=== PATIENT | female | born 1955 | race Caucasian/White ===

== ENCOUNTER 2022-12-20 13:29 | Outpatient (AMB) | payer MEDICARE, OTHER, SELFPAY ==
[2022-12-20 13:33] VITALS: BP 128/74; PULSE 75; BMI 26.1
--- NOTE | 2022-12-20 13:33 | HO.NEPHOV ---
HPI HPI Comments History of Present Illness Details Maria A is a 67-year-old female whom had the privilege of seeing in follow-up for her labile blood pressure. She has history hypertension and in the past was on SARAH-inhibitor, the dose of which had been reduced over time due to dizziness. She has history of obstructive sleep apnea and was on CPAP briefly which she does not use these days. She felt better when her SARAH-inhibitor was reduced & was later was maintained on 2.5 mg lisinopril even though her dizziness never went away at that time. Then her blood pressures started going up and had epistaxis needing emergency room visit. Later she had been started on increased dose of lisinopril. She typically takes a normal diet. She has history of dyslipidemia and was on statins in the past which she had discontinued. Her renal functions always have been normal. She closely monitors her blood pressure at home. She denies any history of hypokalemia. She has history of hypothyroidism and is on levothyroxine. She denies any CVA, CHF, NELLIE, PVD, CAD or carotid stenosis. Her lipid profile had improved with diet. She had a Doppler of renal arteries showed unilateral renal artery stenosis. She had a cough from SARAH inhibitor and it was discontinued. Currently she is maintained on nifedipine. She is tolerating that medication well. [facility] Medical History (Updated 12/24/22 @ 09:15 by Andre Soto MD) Xerostomia Sleep apnea Hyperlipidemia Hypothyroidism History of adenomatous polyp of colon Fatigue Esophageal reflux Carpal tunnel syndrome of right wrist Hypertension Surgical History (Updated 12/20/22 @ 13:43 by Callie Escobar MA) History of carpal tunnel release History of breast surgery History of bladder surgery Family History Mother Heart disease Hypertension Father Hypertension Cancer Sister Hypertension Brother Heart disease Social History Alcohol intake: current Patient Tobacco Use Status: Never used Tobacco Vital Signs 12/20/22 13:33 Height 5 ft 4 in Weight 152 lb 2 oz BMI 26.1 BP 128/74 Blood Pressure Location Lt brachial Position Sitting Pulse 75 Pulse Source Pulse Oximeter Physical Exam Vital Signs: Last Vital Signs Pulse 75 12/20/22 13:33 BP 128/74 12/20/22 13:33 BMI result Body Mass Index 26.1 Const General: comfortable and no acute distress Orientation/consciousness: patient oriented x3 HEENT Head: Yes normocephalic Mouth: Normal oral and palatal mucosa present Eyes EOM: EOMs intact bilaterally Neck Neck: Yes supple Resp Auscultation: clear to auscultation bilaterally Cardio Jugular venous distension: no JVD Rate: regular rate Heart sounds: Murmur heart sound present GI Palpation (GI): Soft to palpation Auscultation: normal bowel sounds General: Yes no CVA tenderness Back/Spine/Pelvis Back: no CVA tenderness Skin General skin exam: no rashes or lesions noted Neuro General: patient oriented x3 and moves all extremities Extrem General: Yes no pedal edema Assessment & Plan Assessment & Plan (1) Hypertension: Code(s): I10 - Essential (primary) hypertension Qualifiers: Hypertension type: primary hypertension Qualified Code(s): I10 - Essential (primary) hypertension Plan Maria A has longstanding hypertension. She has unilateral renal artery stenosis. She had a 24 hour blood pressure monitor in the past. She tries to be on a low-sodium diet if possible. She does not use any excessive nonsteroidal anti-inflammatory medications. She has no history of any end-organ damage. Her volume status is optimal. The blood pressure at home is currently at goal. Her SARAH inhibitor was discontinued in the past due to cough. She was later on losartan which was discontinued as it was thought to be causing some tingling sensations in her feet as well as hands. She may benefit from seeing a neurologist for evaluation of the same. She wants to discuss that with her primary care physician. She can continue her current dose of nifedipine for now. Follow-up blood work was ordered. Answered all questions. No prescription refill requested. Time spent reviewing data, discussions, patient encounter and documentation 33 minutes. Orders: Orders Calcium 12/20/22 I10 - Essential (primary) hypertension Electrolytes 12/20/22 I10 - Essential (primary) hypertension Blood Urea Nitrogen 12/20/22 I10 - Essential (primary) hypertension Creatinine 12/20/22 I10 - Essential (primary) hypertension Protein Creatinine Ratio, Ur 12/20/22 I10 - Essential (primary) hypertension Coding Level of Care Code Est Pt Level 4 (35628) Diagnoses Primary hypertension I10 Hypertension type: primary hypertension
== END 2022-12-20 14:33 | disposition home or self-care (01) ==
PROVIDERS: PCP Nurse Practitioner Primary Care; Visit Provider Internal Medicine Nephrology
DX: I10 Essential (primary) hypertension (principal); I70.1 Atherosclerosis of renal artery
CPT/HCPCS: 99214

== ENCOUNTER → 2022-12-20 13:29 | Outpatient (BNVA) | payer OTHER, MEDICARE, SELFPAY | PROVIDERS: PCP Nurse Practitioner Primary Care; Visit Provider Internal Medicine Nephrology ==

== ENCOUNTER 2023-06-24 09:24 | Outpatient (AMB) | payer MEDICARE, OTHER, SELFPAY ==
--- NOTE | 2023-06-24 09:28 | HO.NEPHOV_ITS ---
Vital Signs 06/24/23 09:42 Height 5 ft 4 in Weight 156 lb 4 oz BMI 26.8 BP 120/70 Blood Pressure Location Lt brachial Position Sitting Pulse 70 Pulse Source Pulse Oximeter Pulse Oximetry (%) 100 Oxygen Delivery Method Room Air Intake Visit Reasons: 6M follow up/ Confirmed Sustainability Communicator Required: No Accompanied by: Self / Same As Patient Allergies doxycycline Allergy (Verified 06/24/23 09:44) Unknown HPI Comments Details: Maria A is a 67-year-old female whom I had the privilege of seeing in follow-up for her labile blood pressure. She has history hypertension and in the past was on SARAH-inhibitor, the dose of which had been reduced over time due to dizziness. She has history of obstructive sleep apnea and was on CPAP briefly which she does not use these days. She felt better when her SARAH-inhibitor was reduced & was later was maintained on 2.5 mg lisinopril even though her dizziness never went away at that time. Then her blood pressures started going up and had epistaxis needing emergency room visit. Later she had been started on increased dose of lisinopril. She typically takes a normal diet. She has history of dyslipidemia and was on statins in the past which she had discontinued. Her renal functions always have been normal. She closely monitors her blood pressure at home. She denies any history of hypokalemia/ hyperkalemia. She has history of hypothyroidism and is on levothyroxine. She denies any CVA, CHF, NELLIE, PVD, CAD or carotid stenosis. Her lipid profile had improved with diet. She had a Doppler of renal arteries showed unilateral renal artery stenosis. She had a cough from SARAH inhibitor and it was discontinued. Currently she is maintained on nifedipine. She is tolerating that medication well but has been having dizziness when her systolic BP is around 110 or in teens. [facility] Medical History (Updated 12/24/22 @ 09:15 by Andre Soto MD) Xerostomia Sleep apnea Hyperlipidemia Hypothyroidism History of adenomatous polyp of colon Fatigue Esophageal reflux Carpal tunnel syndrome of right wrist Hypertension Surgical History (Updated 12/20/22 @ 13:43 by Callie Escobar MA) History of carpal tunnel release History of breast surgery History of bladder surgery Family History Mother Heart disease Hypertension Father Hypertension Cancer Sister Hypertension Brother Heart disease Social History Alcohol intake: current Patient Tobacco Use Status: Never used Tobacco Physical Exam Const General: comfortable and no acute distress Orientation/consciousness: patient oriented x3 HEENT Head: Yes normocephalic Mouth: Normal oral and palatal mucosa present Eyes EOM: EOMs intact bilaterally Neck Neck: Yes supple Resp Auscultation: clear to auscultation bilaterally Cardio Jugular venous distension: no JVD Rate: regular rate GI Palpation (GI): Soft to palpation Auscultation: normal bowel sounds General: Yes no CVA tenderness Back/Spine/Pelvis Back: no CVA tenderness Skin General skin exam: no rashes or lesions noted Neuro General: patient oriented x3 and moves all extremities Extrem General: Yes no pedal edema Results Reviewed Nephrology Results: No Data to Display Assessment & Plan Assessment & Plan (1) Hypertension: Code(s): I10 - Essential (primary) hypertension Category: Medical Qualifiers: Hypertension type: primary hypertension Qualified Code(s): I10 - Essential (primary) hypertension Plan Maria A has longstanding hypertension. She has unilateral renal artery stenosis. She had a 24 hour blood pressure monitor in the past. She tries to be on a low-sodium diet if possible. She does not use any excessive nonsteroidal anti- inflammatory medications. She has no history of any end-organ damage. Her volume status is optimal. The blood pressure at home is currently at goal. Her SARAH inhibitor was discontinued in the past due to cough. She was later on losartan which was discontinued as it was thought to be causing some tingling sensations in her feet as well as hands. She can continue her current dose of nifedipine for now but I have asked her to take it at bed time. Answered all questions. No prescription refill requested. Coding Level of Care Code Est Pt Level 4 (92960) Diagnoses Primary hypertension I10 Hypertension type: primary hypertension
[2023-06-24 09:42] VITALS: BP 120/70; PULSE 70; O2SAT 100; BMI 26.8
== END 2023-06-24 10:18 | disposition home or self-care (01) ==
PROVIDERS: PCP Nurse Practitioner Primary Care; Visit Provider Internal Medicine Nephrology
DX: I10 Essential (primary) hypertension (principal)
CPT/HCPCS: 99214

== ENCOUNTER → 2023-06-24 09:24 | Outpatient (BNVA) | payer OTHER, MEDICARE, SELFPAY | PROVIDERS: PCP Nurse Practitioner Primary Care; Visit Provider Internal Medicine Nephrology ==

== ENCOUNTER 2023-10-14 15:07 | Outpatient (AMB) | payer MEDICARE, OTHER, SELFPAY ==
--- NOTE | 2023-10-14 15:39 | HO.NEPHOV_ITS ---
Vital Signs 10/14/23 15:40 Height 5 ft 4 in Weight 155 lb BMI 26.6 BP 134/78 Blood Pressure Location Lt brachial Position Sitting Pulse 57 Pulse Source Pulse Oximeter Pulse Oximetry (%) 98 Oxygen Delivery Method Room Air Intake Visit Reasons: Sep follow up- Conf Editing Intern Required: No Allergies doxycycline Allergy (Verified 10/14/23 15:43) Unknown HPI Comments Details: Maria A is a 67-year-old female whom I had the privilege of seeing in follow-up for her labile blood pressure. She has history hypertension and in the past was on SARAH-inhibitor, the dose of which had been reduced over time due to dizziness. She has history of obstructive sleep apnea and was on CPAP briefly which she does not use these days. She felt better when her SARAH-inhibitor was reduced & was later was maintained on 2.5 mg lisinopril even though her dizziness never went away at that time. Then her blood pressures started going up and had epistaxis needing emergency room visit. Later she had been started on increased dose of lisinopril. She typically takes a normal diet. She has history of dyslipidemia and was on statins in the past which she had discontinued. Her renal functions always have been normal. She closely monitors her blood pressure at home. She denies any history of hypokalemia/ hyperkalemia. She has history of hypothyroidism and is on levothyroxine. She denies any CVA, CHF, NELLIE, PVD, CAD or carotid stenosis. Her lipid profile had improved with diet. She had a Doppler of renal arteries showed unilateral renal artery stenosis. She had a cough from SARAH inhibitor and it was discontinued. She has been on nifedipine which was discontinued due to relatively low BP's. Her HR has been running around 50's [facility] Medical History (Updated 10/14/23 @ 15:59 by Andre Soto MD) Xerostomia Sleep apnea Hyperlipidemia Hypothyroidism History of adenomatous polyp of colon Fatigue Esophageal reflux Carpal tunnel syndrome of right wrist Hypertension Surgical History History of carpal tunnel release History of breast surgery History of bladder surgery Family History Mother Heart disease Hypertension Father Hypertension Cancer Sister Hypertension Brother Heart disease Social History Alcohol intake: current Patient Tobacco Use Status: Never used Tobacco Physical Exam Vital Signs: Last Vital Signs Pulse 57 10/14/23 15:40 BP 134/78 10/14/23 15:40 Pulse Ox 98 10/14/23 15:40 Oxygen Delivery Method Room Air 10/14/23 15:40 BMI result Body Mass Index 26.6 Results Reviewed Nephrology Results: No Data to Display Assessment & Plan Assessment & Plan (1) Hypertension: Code(s): I10 - Essential (primary) hypertension Category: Medical Qualifiers: Hypertension type: primary hypertension Qualified Code(s): I10 - Essential (primary) hypertension (2) Renal artery stenosis: Code(s): I70.1 - Atherosclerosis of renal artery Category: Medical Plan Maria A had longstanding hypertension. She has unilateral renal artery stenosis. She had a 24 hour blood pressure monitor in the past. She tries to be on a low-sodium diet if possible. She does not use any excessive nonsteroidal anti-inflammatory medications. She has no history of any end-organ damage. Her volume status is optimal. The blood pressure at home is currently at goal off all BP medications. She needs cardiology consultation to R/O conduction issues . Answered all questions. Coding Level of Care Code Est Pt Level 4 (37455) Diagnoses Primary hypertension I10 Hypertension type: primary hypertension Renal artery stenosis I70.1
[2023-10-14 15:40] VITALS: BP 134/78; PULSE 57; O2SAT 98; BMI 26.6
== END 2023-10-14 16:11 | disposition home or self-care (01) ==
PROVIDERS: PCP Nurse Practitioner Primary Care; Visit Provider Internal Medicine Nephrology
DX: I10 Essential (primary) hypertension (principal); I70.1 Atherosclerosis of renal artery
CPT/HCPCS: 99214

== ENCOUNTER → 2023-10-14 15:07 | Outpatient (BNVA) | payer OTHER, MEDICARE, SELFPAY | PROVIDERS: PCP Nurse Practitioner Primary Care; Visit Provider Internal Medicine Nephrology ==

== ENCOUNTER 2024-04-15 13:41 | Outpatient (AMB) | payer OTHER, MEDICARE, SELFPAY ==
--- NOTE | 2024-04-15 13:39 | HO.NEPHOV ---
Vital Signs 04/15/24 14:00 Height 5 ft 3.5 in Weight 159 lb 6 oz BMI 27.8 BP 138/70 Blood Pressure Location Lt brachial Position Sitting Pulse 69 Pulse Source Pulse Oximeter Pulse Oximetry (%) 97 Oxygen Delivery Method Room Air Intake Visit Reasons: 6 mon follow up-Conf Special Needs Librarian Required: No Accompanied by: Self / Same As Patient Allergies doxycycline Allergy (Verified 04/15/24 14:01) Unknown HPI Comments Details: Maria A is a 67-year-old female whom I had the privilege of seeing in follow-up for her labile blood pressure. She has history hypertension and in the past was on SARAH-inhibitor, the dose of which had been reduced over time due to dizziness. She has history of obstructive sleep apnea and was on CPAP briefly which she does not use these days. She felt better when her SARAH-inhibitor was reduced & was later was maintained on 2.5 mg lisinopril even though her dizziness never went away at that time. Then her blood pressures started going up and had epistaxis needing emergency room visit. Later she had been started on increased dose of lisinopril. She typically takes a normal diet. She has history of dyslipidemia and was on statins in the past which she had discontinued. Her renal functions always have been normal. She closely monitors her blood pressure at home. She denies any history of hypokalemia/ hyperkalemia. She has history of hypothyroidism and is on levothyroxine. She denies any CVA, CHF, NELLIE, PVD, CAD or carotid stenosis. Her lipid profile had improved with diet. She had a Doppler of renal arteries showed unilateral renal artery stenosis. She had a cough from SARAH inhibitor and it was discontinued. She has been on nifedipine which was discontinued due to relatively low BP's. Her sodium intake has been on the higher side and her BP has been fluctuant [facility] Medical History (Updated 10/14/23 @ 15:59 by Andre Soto MD) Xerostomia Sleep apnea Hyperlipidemia Hypothyroidism History of adenomatous polyp of colon Fatigue Esophageal reflux Carpal tunnel syndrome of right wrist Hypertension Surgical History History of carpal tunnel release History of breast surgery History of bladder surgery Family History Mother Heart disease Hypertension Father Hypertension Cancer Sister Hypertension Brother Heart disease Social History Alcohol intake: current Patient Tobacco Use Status: Never used Tobacco Review of Systems Const All systems reviewed & are unremarkable except as noted in HPI and below Physical Exam Vital Signs: Last Vital Signs Pulse 69 04/15/24 14:00 BP 138/70 04/15/24 14:00 Pulse Ox 97 04/15/24 14:00 Oxygen Delivery Method Room Air 04/15/24 14:00 BMI result Body Mass Index 27.8 Const General: comfortable and no acute distress Orientation/consciousness: patient oriented x3 HEENT Head: Yes normocephalic Mouth: Normal oral and palatal mucosa present Eyes EOM: EOMs intact bilaterally Neck Neck: Yes supple Resp Auscultation: clear to auscultation bilaterally Cardio Jugular venous distension: no JVD Rate: regular rate GI Palpation (GI): Soft to palpation Auscultation: normal bowel sounds Skin General skin exam: no rashes or lesions noted Neuro General: patient oriented x3 and moves all extremities Extrem General: Yes no pedal edema Results Reviewed Nephrology Results: No Data to Display Assessment & Plan Assessment & Plan (1) Hypertension: Code(s): I10 - Essential (primary) hypertension Category: Medical Qualifiers: Hypertension type: primary hypertension Qualified Code(s): I10 - Essential (primary) hypertension (2) Renal artery stenosis: Code(s): I70.1 - Atherosclerosis of renal artery Category: Medical Plan Maria A had longstanding hypertension. She has unilateral renal artery stenosis. She had a 24 hour blood pressure monitor in the past. She tries to be on a low-sodium diet if possible. She does not use any excessive nonsteroidal anti-inflammatory medications. She has no history of any end-organ damage. Her volume status is optimal. The blood pressure at home is currently at goal off all BP medications. Answered all questions. Coding Level of Care Code Est Pt Level 4 (13854) Diagnoses Primary hypertension I10 Hypertension type: primary hypertension Renal artery stenosis I70.1
[2024-04-15 14:00] VITALS: BP 138/70; PULSE 69; O2SAT 97; BMI 27.8
--- OUTSIDE RECORDS SUMMARY | 2024-04-15 16:39 | XMS_ITS | Encounter Summary ---
Author Organization [facility] Address [address] [place] [address] Phone Care Team Providers Care Natural Resources Specialist Name Role Phone Latha Damon GLASS FRAME FITTER-C Primary Care Provider + Reason for Visit * Reason Comments Med Refill Encounter Details Date Type Department Care Team (Late st Contact Info) Description 11/13/2022 Refill [facility] [address] [place] [address] Andre Soto MD Social History Tobacco Use Types Packs/Day Years Used Date Smoking Tobacco: Never Smokeless Tobacco: Never Alcohol Use Standard Drinks/Week Comments Yes 0 (1 standard drink = 0.6 oz pur e alcohol) Comments Unknown Sex and Gender Information Value Date Recorded Sex Assigned at Not on file Legal Sex Female 4:46 PM EDT Gender Identity Not on file Sexual Orientation Not on file documented as of this encounter Plan of Treatment Not on file documented as of this encounter Visit Diagnoses Not on filedocumented in this encounter Care Teams Natural Resources Specialist Relationship Specialty Start Date End Date Latha Damon NP-C [address], [address] [place], [place] [id number] PCP - General Nurse Practitioner 05/16/22 documented as of this encounter
--- OUTSIDE RECORDS SUMMARY | 2024-04-15 16:39 | XMS_ITS | Clinical Summary ---
Author Organization [facility] Address [address] [place] [address] Phone Care Team Providers Care Boiler House Inspector Name Role Phone Latha Damon WAITSTAFFCollinC Primary Care Provider + Allergies No known active allergies Medications albuterol HFA (PROVENTIL HFA;VENTOLIN HFA) 108 (90 Base) MCG/ACT inhaler Inhale 2 puffs every 6 (six) hours if needed for wheezing Active levothyroxine (SYNTHROID, LEVOTHROID) 75 MCG tablet Take 75 mcg by mouth 1 (one) time each day Active EPINEPHrine (EPIPEN) 0.3 MG/0.3ML injection syringe INJECT 0.3 MILLILITER (0.3 MG) BY INTRAMUSCULAR ROUTE ONCE NEEDED FOR ANAPHYLAXIS 3 Active traZODone (DESYREL) 100 MG tablet Take 100 mg by mouth if needed 3 Active NIFEdipine XL (PROCARDIA XL) 30 MG 24 hr tablet TAKE 1 TABLET (30 MG TOTAL) BY MOUTH 1 (ONE) TIME EACH DAY DO NOT CRUSH, CHEW, OR SPLIT. 30 tablet 1 3 Active Active Problems Problem Noted Date Diagnosed Date Renal artery stenosis 06/27/2022 Rectocele 06/26/2022 Hypertension 05/21/2022 Essential (primary) hypertension 05/20/2022 Immunizations Name Administration Dates Next Due Pfizer SARS-COV-2 05/17/2020,04/26/2020 Family History Medical History Relation Comments Heart disease Brother Cancer Father Bladder Cancer Hypertension Father Heart disease Mother Hypertension Mother Hypertension Sister Relation Status Comments Brother Father Mother Sister Social History Tobacco Use Types Packs/Day Years Used Date Smoking Tobacco: Never Smokeless Tobacco: Never Tobacco Cessation:Counseling Given: Not Answered Alcohol Use Standard Drinks/Week Comments Yes 0 (1 standard drink = 0.6 oz pur e alcohol) Comments Unknown Sex and Gender Information Value Date Recorded Sex Assigned at Not on file Legal Sex Female 4:46 PM EDT Gender Identity Not on file Sexual Orientation Not on file Last Filed Vital Signs Vital Sign Reading Time Taken Comments Blood Pressure 130/70 10/28/2022 4:46 PM EDT Pulse 84 10/28/2022 4:46 PM EDT Temperature - - Respiratory Rate - - Oxygen Saturation - - Inhaled Oxygen Concentration - - Weight 69.9 kg (154 lb 3.2 oz) 10/28/2022 4:46 P M EDT Height - - Body Mass Index - - Plan of Treatment Health Maintenance Due Date Last Done Comments Breast Cancer Screening 1955 Pneumococcal Vaccine: 65+ Ye ars (1 of 2 - PCV) 01/27/1960 Colorectal Cancer Screening: Annual FOBT 2003 Colorectal Cancer Screening: Colonoscopy 2003 Colorectal Cancer Screening: Sigmoidoscopy 2003 Influenza Vaccine (#1) 2023 Hepatitis B Vaccine Aged Out No longe r eligible based on patient's age to complete this topic Insurance * Guarantor: Maria A Pierre Account Type Relation to Patient Date of Phone Billing Address Personal/Family Self 1955 [address] [place] [address] MEDICARE [facility] * Guarantor: Maria A Pierre Account Type Relation to Patient Date of Phone Billing Address Personal/Family Self 1955 [address] [place] [id number] MEDICARE [facility] Care Teams Boiler House Inspector Relationship Specialty Start Date End Date Latha Damon NP-C [address], [address] [place] [address] PCP - General Nurse Practitioner 05/16/22
== END 2024-04-15 14:28 | disposition home or self-care (01) ==
PROVIDERS: PCP Nurse Practitioner Primary Care; Visit Provider Internal Medicine Nephrology
DX: I10 Essential (primary) hypertension (principal); I70.1 Atherosclerosis of renal artery
CPT/HCPCS: 99214

== ENCOUNTER → 2024-04-15 13:41 | Outpatient (BNVA) | payer OTHER, MEDICARE, SELFPAY | PROVIDERS: PCP Nurse Practitioner Primary Care; Visit Provider Internal Medicine Nephrology ==

== ENCOUNTER 2024-10-14 09:34 | Outpatient (AMB) | payer OTHER, MEDICARE, SELFPAY ==
--- NOTE | 2024-10-14 09:38 | HO.NEPHOV ---
Vital Signs 10/14/24 09:56 Height 5 ft 3.5 in Weight 157 lb 6 oz BMI 27.4 BP 130/70 Blood Pressure Location Lt brachial Position Sitting Pulse 74 Pulse Source Pulse Oximeter Pulse Oximetry (%) 98 Oxygen Delivery Method Room Air Intake Visit Reasons: 6 mo follow up-Conf Vehicle Service Attendant Required: No Accompanied by: Self / Same As Patient Allergies doxycycline Allergy (Verified 10/14/24 09:56) Unknown HPI Comments Details: Maria A is a 67-year-old female whom I had the privilege of seeing in follow-up for her labile blood pressure. She has history hypertension and in the past was on SARAH-inhibitor, the dose of which had been reduced over time due to dizziness. She has history of obstructive sleep apnea and was on CPAP briefly which she does not use these days. She felt better when her SARAH-inhibitor was reduced & was later was maintained on 2.5 mg lisinopril even though her dizziness never went away at that time. Then her blood pressures started going up and had epistaxis needing emergency room visit. Later she had been started on increased dose of lisinopril. She typically takes a normal diet. She has history of dyslipidemia and was on statins in the past which she had discontinued. Her renal functions always have been normal. She closely monitors her blood pressure at home. She denies any history of hypokalemia/ hyperkalemia. She has history of hypothyroidism and is on levothyroxine. She denies any CVA, CHF, NELLIE, PVD, CAD or carotid stenosis. Her lipid profile had improved with diet. She had a Doppler of renal arteries showed unilateral renal artery stenosis. She had a cough from SARAH inhibitor and it was discontinued. She has been on nifedipine which was discontinued due to relatively low BP's. She is going to have coronary Calcium score done soon. [facility] Medical History (Updated 10/14/24 @ 10:04 by Andre Soto MD) Xerostomia Sleep apnea Hyperlipidemia Hypothyroidism History of adenomatous polyp of colon Fatigue Esophageal reflux Carpal tunnel syndrome of right wrist Hypertension Surgical History History of carpal tunnel release History of breast surgery History of bladder surgery Family History Mother Heart disease Hypertension Father Hypertension Cancer Sister Hypertension Brother Heart disease Social History Alcohol intake: current Patient Tobacco Use Status: Never used Tobacco Review of Systems Const All systems reviewed & are unremarkable except as noted in HPI and below Physical Exam Vital Signs: Last Vital Signs Pulse 74 10/14/24 09:56 BP 130/70 10/14/24 09:56 Pulse Ox 98 10/14/24 09:56 Oxygen Delivery Method Room Air 10/14/24 09:56 BMI result Body Mass Index 27.4 Const General: comfortable and no acute distress Orientation/consciousness: patient oriented x3 HEENT Head: Yes normocephalic Mouth: Normal oral and palatal mucosa present Eyes EOM: EOMs intact bilaterally Neck Neck: Yes supple Resp Auscultation: clear to auscultation bilaterally Cardio Jugular venous distension: no JVD Rate: regular rate GI Palpation (GI): Soft to palpation Auscultation: normal bowel sounds General: Yes no CVA tenderness Back/Spine/Pelvis Back: no CVA tenderness Skin General skin exam: no rashes or lesions noted Neuro General: patient oriented x3 and moves all extremities Extrem General: Yes no pedal edema Assessment & Plan Assessment & Plan (1) Renal artery stenosis: Code(s): I70.1 - Atherosclerosis of renal artery Category: Medical (2) Labile blood pressure: Code(s): R09.89 - Other specified symptoms and signs involving the circulatory and respiratory systems Category: Medical Plan Maria A had longstanding labile blood pressure . She has unilateral renal artery stenosis. She had a 24 hour blood pressure monitor in the past. She tries to be on a low-sodium diet if possible. She does not use any excessive nonsteroidal anti-inflammatory medications. She has no history of any end-organ damage. Her volume status is optimal. The blood pressure at home is currently at goal off all BP medications. Answered all questions. Orders: Orders Creatinine 8 Months I70.1 - Atherosclerosis of renal artery, R09.89 - Other specified symptoms and signs involving the circulatory and respiratory systems Blood Urea Nitrogen 8 Months I70.1 - Atherosclerosis of renal artery, R09.89 - Other specified symptoms and signs involving the circulatory and respiratory systems Electrolytes 8 Months I70.1 - Atherosclerosis of renal artery, R09.89 - Other specified symptoms and signs involving the circulatory and respiratory systems Protein Creatinine Ratio, Ur 8 Months I70.1 - Atherosclerosis of renal artery, R09.89 - Other specified symptoms and signs involving the circulatory and respiratory systems Coding Level of Care Code Est Pt Level 4 (61395) Diagnoses Renal artery stenosis I70.1 Labile blood pressure R09.89
[2024-10-14 09:56] VITALS: BP 130/70; PULSE 74; O2SAT 98; BMI 27.4
--- OUTSIDE RECORDS SUMMARY | 2024-10-14 10:20 | XMS_ITS | Encounter Summary ---
Author Organization [facility] Address [address] [place] [address] Care Team Providers Care Tube Washer Name Role Phone Physician, Pcp Unknown Primary Care Provider Laura vailable Encounter Details Date Type Department Care Team (Latest Contact Info) Description 08/10/2024 Lab Requisition [facility] - Main Lab [address] [place] [phone] Evangelista Penny MD [address] [phone] Encounter for gynecological examination (general) (routine) without abnormal findings Social History Tobacco Use Types Packs/Day Years Used Date Smoking Tobacco: Never Assessed Comments Unknown Sex and Gender Information Value Date Recorded Sex Assigned at Not on file Legal Sex Female 3:46 PM EST Gender Identity Not on file Sexual Orientation Not on file documented as of this encounter Plan of Treatment Not on file documented as of this encounter Procedures Procedure Name Priority Date/Time Associated Diagnosis Comments PAP SMEAR Routine 08/10/2024 12:00 AM EDT Encounter for gynecological examination (general) (routine) without abnormal findings documented in this encounter Results * Pap smear (08/10/2024 12:00 AM EDT) Interpretation Negative for intraepithelial lesion or malignancy 08/17/2024 11:43 AM EDT [facility] General Categorization Negative 08/17/2024 11:43 AM EDT [facility] Other Findings Atrophy 08/17/2024 11:43 AM [facility] Specimen Adequacy Satisfactory for evaluation 08/17/2024 11:43 AM [facility] Pap Methodology Liquid Based Pap Test 08/17/2024 11:43 AM [facility] Disclaimer The Pap test is a screening test which carries an inherent false negative rate. These test results should be correlated with the patient's clinical findings and history. This Pap test was processed using an automated screening system. Technical cytopathology services provided by [facility], at [address] [place] [id number] (CLIA # [id number]/Columba Peres MD, Supervisor Machine Setter.) 08/17/2024 11:43 AM [facility] Console Pap Interpretation Reported 08/17/2024 11:43 AM [facility] Brushing/Spatula Cervix uteri structure / Unknown 08/10/2024 08/10/2024 2:01 PM EDT us Evangelista Penny MD LAB CYTOLOGY ORDERABLES Final Result [facility] [address] [place] [address], documented in this encounter Visit Diagnoses Diagnosis Encounter for gynecological examination (general) (routine) without abnormal findings documented in this encounter Care Teams Tube Washer Relationship Specialty Start Date End Date Physician, Pcp Unknown PCP - General 08/10/24 documented as of this encounter
--- OUTSIDE RECORDS SUMMARY | 2024-10-14 10:20 | XMS_ITS | Encounter Summary ---
Author Organization [facility] Address [address] [place] [address] Phone Care Team Providers Care Invertebrate Paleontologist Name Role Phone Latha Damon LABORER SYRUP MACHINE-C Primary Care Provider + Reason for Visit * Reason Comments Med Refill Encounter Details Date Type Department Care Team (Late st Contact Info) Description 11/13/2022 Refill [facility] [address] [place] [address] Andre Soto MD Social History [...] on filedocumented in this encounter Care Teams Invertebrate Paleontologist Relationship Specialty Start Date End Date Latha Damon NP-C [address], [address] [place], [place] [phone] PCP - General Nurse Practitioner 05/16/22 documented as of this encounter
--- OUTSIDE RECORDS SUMMARY | 2024-10-14 10:20 | XMS_ITS | Clinical Summary ---
Author Organization [facility] Address [address] [place] [address] Phone Care Team Providers Care Water Commissioner Name Role Phone [place] Latha GRINDER HARDBOARDCollinC Primary Care Provider + Allergies No known [...] Hypertension 05/21/2022 Essential (primary) hypertension 05/20/2022 Immunizations Immunization Administration Dates Next Due Pfizer SARS-COV-2 05/17/2020,04/26/2020 [...] Comments Breast Cancer Screening 1955 Pneumococcal Vaccine: 50+ Ye ars (1 of 2 - PCV) 1973 Colorectal Cancer Screening: Annual FOBT 2003 Colorectal Cancer Screening: Colonoscopy 2003 Colorectal Cancer Screening: Sigmoidoscopy 2003 Influenza Vaccine (#1) 2024 Hepatitis B Vaccine Aged Out No longe r eligible based on patient's age to complete this topic Insurance * Guarantor: Maria A Pierre Account Type Relation to Patient Date of Phone Billing Address Personal/Family Self 1955 [address] [facility] [place] [address] Medicare [facility] * Guarantor: Maria A Pierre Account Type Relation to Patient Date of Phone Billing Address Personal/Family Self 1955 [address] [place] [id number] Medicare [facility] Care Teams Water Commissioner Relationship Specialty Start Date End Date Latha Damon NP-C [address], [address] [place] [address] PCP - General Nurse Practitioner 05/16/22
--- OUTSIDE RECORDS SUMMARY | 2024-10-14 10:20 | XMS_ITS | Clinical Summary ---
Author Organization [address] [facility] Address [address] [place] [address] Phone Care Team Providers Care Mold Unloader Name Role Phone Physician, Pcp Unknown Primary Care Provider Laura vailable Encounters Date Type Department Care Team Description 08/10/2024 Lab Requisition [facility] - Main Lab [address] [place] [address] Evangelista Penny MD Encounter for gynecological examination (general) (routine) without abnormal findings from Last 3 Months Social History Tobacco Use Types Packs/Day Years Used Date Smoking Tobacco: Never Assessed Comments Unknown Sex and Gender Information Value Date Recorded Sex Assigned at Not on file Legal Sex Female 3:46 PM EST Gender Identity Not on file Sexual Orientation Not on file Plan of Treatment Health Maintenance Due Date Last Done Comments Breast Cancer Screening 1955 DTaP,Tdap,and Td Vaccines (1 - Tdap) 1973 Pneumococcal Vaccine: 50+ Ye ars (1 of 1 - PCV) 01/27/2004 Zoster Vaccines (1 of 2) 01/27/2004 Colorectal Cancer Screening: Colonoscopy 01/09/2022 Falls Risk Assessment 01/09/2022 Hepatitis C Screening 01/09/2022 Medicare Annual Wellness Visit 01/09/2022 Osteoporosis Screening (Bone Density Screening) 01/09/2022 Social Influencers of Health Screening 01/09/2022 COVID-19 Vaccine ( - 2023-2 5 season) 2023 Depression Screening 02/11/2024 Influenza Vaccine (#1) 2024 RSV Immunization Adult Patie nts (1 - 1-dose 75+ series) 2029 HIB Vaccines Aged Out No longer eligi ble based on patient's age to complete this topic HPV Vaccines Aged Out No longer eligi ble based on patient's age to complete this topic Hepatitis A Vaccines Aged Out No long er eligible based on patient's age to complete this topic Hepatitis B Vaccines Aged Out No long er eligible based on patient's age to complete this topic IPV Vaccines Aged Out No longer eligi ble based on patient's age to complete this topic MMR Vaccines Aged Out No longer eligi ble based on patient's age to complete this topic Meningococcal ACWY Vaccine Aged Out N o longer eligible based on patient's age to complete this topic Meningococcal B Vaccine Aged Out No l onger eligible based on patient's age to complete this topic RSV Immunization Patients Un eloise 20 months Aged Out No longer eligible b ased on patient's age to complete this topic Varicella Vaccines Aged Out No longer eligible based on patient's age to complete this topic Procedures Procedure Name Priority Date/Time Associated Diagnosis Comments PAP SMEAR Routine 08/10/2024 12:00 AM EDT Encounter for gynecological examination (general) (routine) without abnormal findings from Last 3 Months Results * Pap smear (08/10/2024 12:00 AM EDT) Interpretation Negative for intraepithelial lesion or malignancy 08/17/2024 11:[address] [facility] General Categorization Negative 08/17/2024 11:[address] [facility] Other Findings Atrophy 08/17/2024 11:[address] [facility] Specimen Adequacy Satisfactory for evaluation 08/17/2024 11:[address] [facility] Pap Methodology Liquid Based Pap Test 08/17/2024 11:[address] [facility] Disclaimer The Pap test is a screening test which carries an inherent false negative rate. These test results should be correlated with the patient's clinical findings and history. This Pap test was processed using an automated screening system. Technical cytopathology services provided by [facility], at [address] [place] [address] (CLIA # [id number]/Columba Peres MD, Plug Sorter.) 08/17/2024 11:43 AM EDT [facility] Console Pap Interpretation Reported 08/17/2024 11:43 AM EDT [facility] Brushing/Spatula Cervix uteri structure / Unknown 08/10/2024 08/10/2024 2:01 PM EDT us Evangelista Penny MD LAB CYTOLOGY ORDERABLES Final Result [facility] [address] [place] [address], [place] [phone] from Last 3 Months Insurance MEDICARE [facility] Care Teams Mold Unloader Relationship Specialty Start Date End Date Physician, Pcp Unknown PCP - General 08/10/24
== END 2024-10-14 10:25 | disposition home or self-care (01) ==
LOC: HO.HKAS 09:34
PROVIDERS: PCP Nurse Practitioner Primary Care; Visit Provider Internal Medicine Nephrology
DX: I70.1 Atherosclerosis of renal artery (principal); R09.89 Other specified symptoms and signs involving the circulatory and respiratory systems
CPT/HCPCS: 99214